=== PATIENT | female | born 1965 | race Caucasian/White ===

== ENCOUNTER 2016-07-26 11:16 | Emergency (ER) | payer BC ==
[2016-07-26 12:45] VITALS: BP 141/91
--- NOTE | 2016-07-26 13:26 | UC ---
Throat Pain/Nasal Raúl HPI - HPI Summary HPI Summary: 3 days of sore throat left ear ache and fever that is a little better today--- but through she should get checked - History of Current Complaint Chief Complaint: UCRespiratory Stated Complaint: SORE THROAT, AND EAR ACHE Hx Obtained From: Patient Hx Last Menstrual Period: ~ 1 month ago (irregular d/t menopause) ?: No Onset/Duration: Sudden Onset, Lasting Days - 3, Still Present - but improving Severity: Moderate Cough: None Associated Signs & Symptoms: Positive: Sinus Discomfort, Nasal Discharge, Fever - Allergies/Home Medications Allergies/Adverse Reactions: Allergies Allergy/AdvReac Type Severity Reaction Status Date / Time Luana Rowland AdvReac Mild See Comment Verified 09/04/15 13:15 Home Medications: Home Medications Ascorbic Acid [Vitamin C] 1,000 mg PO 07/26/16 [History] Coenzyme Q10 (Ubidecarenone) [Co Q-10] 400 mg PO 07/26/16 [History] PMH/Surg Hx/FS Hx/Imm Hx Previously Healthy: Yes Endocrine History Of: Denies: Diabetes, Thyroid Disease Cardiovascular History Of: Denies: Cardiac Disorders, Hypertension Respiratory History Of: Denies: COPD, Asthma GI/ History Of: Denies: Ulcer - Surgical History Surgical History: Yes Surgery Procedure, Year, and Place: gynecological surgery ~10 years ago (she is unable to recall what it was for) - Family History Known Family History: Positive: None Family History: no cardiovascular issues in family lineage - Social History Occupation: Employed Full-time Lives: With Family Alcohol Use: Occasionally Substance Use Type: None Smoking Status (MU): Smoker, Current Status Unknown Type: Cigarettes Amount Used/How Often: 1/2 ppd Review of Systems Constitutional: Fever, Chills, Fatigue Skin: Negative Eyes: Negative ENT: Sore Throat, Ear Ache, Nasal Discharge Respiratory: Negative Cardiovascular: Negative Gastrointestinal: Negative Genitourinary: Negative Motor: Negative Neurovascular: Negative Musculoskeletal: Negative Neurological: Negative Psychological: Negative All Other Systems Reviewed And Are Negative: Yes Physical Exam Triage Information Reviewed: Yes Appearance: Well-Appearing, No Pain Distress, Well-Nourished Vital Signs: Initial Vital Signs Temp 97.3 F 07/26/16 12:40 Pulse 89 07/26/16 12:40 Resp 18 07/26/16 12:40 BP 141/91 07/26/16 12:40 Pulse Ox 98 07/26/16 12:40 Vital Signs Reviewed: Yes Eye Exam: Normal Eyes: Positive: Conjunctiva Clear ENT Exam: Normal ENT: Positive: Normal ENT inspection, Hearing grossly normal, Nasal congestion, Nasal drainage, TMs normal. Negative: Tonsillar swelling, Tonsillar exudate, Trismus, Muffled/hoarse voice Dental Exam: Normal Neck exam: Normal Neck: Positive: Supple, Nontender, No Lymphadenopathy Respiratory Exam: Normal Respiratory: Positive: Chest non-tender, Lungs clear, Normal breath sounds, No respiratory distress, No accessory muscle use Cardiovascular Exam: Normal Cardiovascular: Positive: RRR, No Murmur, Pulses Normal, Brisk Capillary Refill Musculoskeletal Exam: Normal Musculoskeletal: Positive: Strength Intact, ROM Intact, No Edema Neurological Exam: Normal Neurological: Positive: Alert, Muscle Tone Normal Psychological Exam: Normal Skin Exam: Normal Diagnostics - Laboratory Diagnostic Studies Completed/Ordered: RST(-) Throat Pain/Nasal Course/Dx - Course Assessment/Plan: home and rest increase fluids, flonase and nasal spray to relieve congestion in sinus and ears, follow with pcp re-check prn - Differential Dx/Diagnosis Differential Diagnosis/HQI/PQRI: Otitis Media, Pharyngitis, Sinusitis, URI Provider Diagnoses: rhinnitis, eustation tube dyshunction, viral illness Discharge - Discharge Plan Condition: Stable Disposition: HOME Prescriptions: Fluticasone NASAL SPRAY 50MCG* [Flonase NASAL SPRAY 50MCG*] 2 spray BOTH NARES DAILY #1 btl Patient Education Materials: Ibuprofen (By mouth), Pseudoephedrine (By mouth), Rhinosinusitis (ED), How to Use Nasal Gibson (ED) Referrals: [facility] [place] [facility] REFERRAL [Outside] - If Needed No Primary Care Phys,NOPCP [Primary Care Provider] -
== END 2016-07-26 14:05 | disposition home or self-care (01) ==
LOC: UCEAST 11:16
DX: B34.9 Viral infection, unspecified (principal); J31.0 Chronic rhinitis; H69.92 Unspecified Eustachian tube disorder, left ear; Z88.8 Allergy status to other drugs, medicaments and biological substances; Z72.0 Tobacco use
CPT/HCPCS: 87651; 99212; G0463

== ENCOUNTER 2016-08-13 14:25 | Emergency (ER) | payer BC ==
[2016-08-13 15:54] VITALS: BP 139/81
--- NOTE | 2016-08-13 16:26 | UC ---
Back Pain HPI - HPI Summary HPI Summary: 51 yo female with lbp x 2 1/2 weeks was feel better until 2 days ago when she picked up a table no radiation of pain has decreased ROM no improvement with motrin - History of Current Complaint Chief Complaint: UCBackPain Stated Complaint: LOWER BACK PAIN Time Seen by Provider: 08/13/16 16:04 Hx Obtained From: Patient Hx Last Menstrual Period: ~ 1 month ago (irregular d/t menopause) Onset/Duration: Gradual Onset, Lasting Weeks Timing: Constant Severity Initially: Moderate Severity Currently: Moderate Pain Intensity: 6 Pain Scale Used: 0-10 Numeric Character: Throbbing, Spasmodic Aggravating: Movement, Bending Associated Signs And Symptoms: Positive: Negative - Allergies/Home Medications Allergies/Adverse Reactions: Allergies Allergy/AdvReac Type Severity Reaction Status Date / Time Arnvenkatesh Manningana AdvReac Mild See Comment Verified 08/13/16 15:49 PMH/Surg Hx/FS Hx/Imm Hx Previously Healthy: Yes Endocrine History Of: Denies: Diabetes, Thyroid Disease Cardiovascular History Of: Denies: Cardiac Disorders, Hypertension Respiratory History Of: Denies: COPD, Asthma GI/ History Of: Denies: Ulcer - Surgical History Surgical History: Yes Surgery Procedure, Year, and Place: gynecological surgery ~10 years ago (she is unable to recall what it was for) - Family History Known Family History: Negative: Cardiac Disease, Hypertension, Diabetes Family History: no cardiovascular issues in family lineage - Social History Alcohol Use: Weekly Substance Use Type: None Smoking Status (MU): Smoker, Current Status Unknown Type: Cigarettes Amount Used/How Often: 1/2 ppd Review of Systems Constitutional: Negative Skin: Negative Eyes: Negative ENT: Negative Respiratory: Negative Cardiovascular: Negative Gastrointestinal: Negative Genitourinary: Negative Motor: Negative Neurovascular: Negative Musculoskeletal: Myalgia Neurological: Negative Psychological: Negative All Other Systems Reviewed And Are Negative: Yes Physical Exam Triage Information Reviewed: Yes Appearance: Well-Appearing, No Pain Distress, Well-Nourished Vital Signs: Initial Vital Signs Temp 98.1 F 08/13/16 15:51 Pulse 70 08/13/16 15:51 Resp 18 08/13/16 15:51 BP 139/81 08/13/16 15:51 Pulse Ox 99 08/13/16 15:51 Vital Signs Reviewed: Yes Eyes: Positive: Conjunctiva Clear ENT: Positive: Hearing grossly normal. Negative: Nasal congestion, Nasal drainage, Tonsillar swelling, Tonsillar exudate, Trismus, Muffled/hoarse voice Dental: Negative: Dental Fracture @, Abscess @ Neck: Positive: Supple, Nontender, No Lymphadenopathy Respiratory: Positive: Lungs clear, Normal breath sounds, No respiratory distress Cardiovascular: Positive: No Murmur, Pulses Normal Musculoskeletal: Positive: Strength Intact, ROM Intact Neurological: Positive: Alert Psychological: Positive: Normal Response To Family, Age Appropriate Behavior Skin Exam: Normal Back Pain Course/Dx - Differential Dx/Diagnosis Provider Diagnoses: acute lumbar myofascial strain/spasm Discharge - Discharge Plan Condition: Stable Disposition: HOME Prescriptions: Cyclobenzaprine TAB* [Flexeril TAB*] 5 mg PO TID PRN #21 tab PRN Reason: Spasms Patient Education Materials: Low Back Strain (ED) Referrals: No Primary Care Phys,NOPCP [Primary Care Provider] - Additional Instructions: if you like you can try 2 aleve twice daily and see if it works better than the ibuprofen PT CONSULT see you MD in one week if not better Images Front/Back of Body, Lg (Lucas): 1 - bilateral paraspinous muscle tenderness and pain
== END 2016-08-13 16:27 | disposition home or self-care (01) ==
LOC: UCEAST 14:25
DX: S39.012A Strain of muscle, fascia and tendon of lower back, initial encounter (principal); X50.0XXA Overexertion from strenuous movement or load, initial encounter; Y93.89 Activity, other specified; Y92.9 Unspecified place or not applicable; F17.210 Nicotine dependence, cigarettes, uncomplicated
CPT/HCPCS: 99212; G0463